=== PATIENT | female | born 1970 | race Caucasian/White ===

== ENCOUNTER 2023-07-04 16:00 | Emergency (ER) | payer OTHER ==
--- NOTE | 2023-07-04 16:43 | ED ---
Lower Extremity Injury HPI - General Chief Complaint: Extremity Injury, Lower Stated Complaint: left knee injury Time Seen by Provider: 07/04/23 16:33 Source: patient, RN notes reviewed Mode of arrival: wheelchair Limitations: no limitations - History of Present Illness Initial Comments: This is a pleasant female who fell off a barstool last night landing on her left knee. Patient complains of pain to the anterior aspect of knee which is exacerbated by movement, just elevation, alleviated by rest. Bear weight. Any pain to the ankle or hip. Did sustain a very superficial abrasion to the medial aspect of left ankle. No distal paresthesias. No head or neck injury. No headache, no fever or chills, no changes in vision or hearing, no sore throat or difficulty with speech, no neck pain, no chest pain or shortness of breath, no abdominal pain, no nausea or vomiting, no changes in urination or bowel movements, no numbness or tingling, no skin rashes or lesions. Past medical, surgical, social, and family history reviewed. MD Complaint: knee injury - Related Data Previous Rx's Medication Instructions Recorded HYDROcodone/APAP 5-325MG [Rodanthe 1 tab PO Q8HR PRN 3 Days #12 tab 07/04/23 5-325] Allergies Allergy/AdvReac Type Severity Reaction Status Date / Time No Known Allergies Allergy Verified 07/04/23 16:24 Review of Systems ROS Statement: Those systems with pertinent positive or pertinent negative responses have been documented in the HPI. ROS Other: All systems not noted in ROS Statement are negative. Past Medical History Past Medical History: Cancer, Hyperlipidemia Past Surgical History: Hysterectomy Additional Past Surgical History / Comment(s): double mastectomy General Exam Limitations: no limitations General appearance: alert, in no apparent distress Head exam: Present: atraumatic, normocephalic, normal inspection Eye exam: Present: normal appearance, PERRL, EOMI. Absent: scleral icterus, conjunctival injection, periorbital swelling ENT exam: Present: normal exam, mucous membranes moist Neck exam: Present: normal inspection. Absent: tenderness, meningismus, lymphadenopathy Respiratory exam: Present: normal lung sounds bilaterally. Absent: respiratory distress, wheezes, rales, rhonchi, stridor Cardiovascular Exam: Present: regular rate, normal rhythm, normal heart sounds. Absent: systolic murmur, diastolic murmur, rubs, gallop, clicks GI/Abdominal exam: Present: soft, normal bowel sounds. Absent: distended, tenderness, guarding, rebound, rigid Extremities exam: Present: tenderness, normal capillary refill. Absent: normal inspection, full ROM, pedal edema, joint swelling, calf tenderness Left Hip exam: Present: normal inspection, full ROM. Absent: tenderness Knee exam: Present: tenderness, swelling, ecchymosis, full knee extension. Absent: abrasion, laceration, deformity, crepitus, dislocation, erythema, effusion Lower Leg exam: Present: normal inspection. Absent: tenderness Ankle exam: Present: full ROM, abrasion. Absent: tenderness, swelling Back exam: Present: normal inspection Neurological exam: Present: alert, oriented X3, CN II-XII intact Psychiatric exam: Present: normal affect, normal mood Skin exam: Present: warm, dry, intact, normal color. Absent: rash Course Vital Signs 07/04/23 16:20 Temperature 99 F Pulse Rate 100 Respiratory 20 Rate Blood Pressure 118/75 O2 Sat by Pulse 98 Oximetry Medical Decision Making - Medical Decision Making Was pt. sent in by a medical professional or institution? @ -No Did you speak to anyone other than the patient for history? @ -No Did you review nursing and triage notes? @ -Agree Were old charts reviewed? @ -No Differential Diagnosis? @ -Contusion, fracture, dislocation, is not appeared to be consistent with infectious process, not consistent with neurovascular injury. EKG interpreted by me (3pts min.)? @ -[none] X-rays interpreted by me (1pt min.)? @ -Independent interpretation of the left knee x-ray by me shows evidence of a minimally displaced fracture to the lateral aspect of the tibial plateau. Interpretation is delayed. CT interpreted by me (1pt min.)? @ -[none] U/S interpreted by me (1pt. min.)? @ -[none] What testing was considered but not performed? (CT, X-rays, U/S, labs)? Why? @ [Left foot x-ray was considered but not performed as the patient refuses study stating that she really had no pain to the ankle or foot. What meds were considered but not given? Why? @ -[none] Did you discuss the management of the patient with other professionals? @ -None Did you reconcile home meds? @ -[none] Was smoking cessation discussed for >3mins.? @ -[none] Was critical care preformed (if so, how long)? @ -[none] Were there social determinants of health that impacted care today? How? (Homelessness, low income, unemployed, alcoholism, drug addiction, transportation, low edu. Level, literacy, decrease access to med. care, fdc, rehab)? @ -Patient is from [place] and will be going back on Sunday. We'll see an orthopedic physician there--discussed conservative therapy otherwise. Was there de-escalation of care discussed even if they declined? (Discuss DNR or withdrawal of care, Hospice)? @ -[Discuss DNR or withdrawal of care, Hospice?] What co-morbidities impacted this encounter? (DM, HTN, Smoking, COPD, CAD, Cancer, CVA, Hep., AIDS, mental health diagnosis, sleep apnea, morbid obesity)? @ - None Was patient admitted / discharged? @ -[hospital course] Undiagnosed new problem with uncertain prognosis? @ -[none] Drug Therapy requiring intensive monitoring for toxicity (Heparin, Nitro, Insulin, Cardizem)? @ -[none] Were any procedures done? @ - Application of knee immobilizer, distal neurovascular status intact both pre-and post-application. Patient told to wear the knee immobilizer at all times until follow-up with orthopedics. Diagnosis/symptom? @ -Left tibial plateau fracture, abrasion left ankle and foot Acute, or Chronic, or Acute on Chronic? @ -Acute Uncomplicated (without systemic symptoms) or Complicated (systemic symptoms)? @ -Uncomplicated Side effects of treatment? @ -[none] Exacerbation, Progression, or Severe Exacerbation] @ -[no] Poses a threat to life or bodily function? @ -Unlikely to post threat to life or bodily function Discussed need for follow-up with orthopedics. Wear the knee immobilizer at all times until follow-up with orthopedics. Discussed signs and symptoms of compartment syndrome. Discussed signs and symptoms of splint care. Neurovascular status intact. Short course of Rodanthe, 3 days. The case was discussed in detail with ED attending physician. Presentation, findings, treatment plan discussed in detail. Disposition Clinical Impression: Closed fracture of left tibial plateau, Abrasion, left ankle, initial encounter Disposition: HOME SELF-CARE Condition: Stable Instructions (If sedation given, give patient instructions): Leg Fracture (ED), Knee Immobilizer (ED) Additional Instructions: Wear the knee immobilizer and ofttimes until follow-up with orthopedics. Call as soon as possible to set up a follow-up appointment with your orthopedic physician in [place]. The leg as much as possible. Apply ice 20 minutes on and off to the affected area. Do not drive or operate machinery while taking the pain medication. Wear the knee immobilizer at all times. Use crutches at all times as directed. Follow-up with your regular physician as directed. Return to the ER immediately if any symptoms worsen, new symptoms arise, or any other problems develop. Prescriptions: HYDROcodone/APAP 5-325MG [Rodanthe 5-325] 1 tab PO Q8HR PRN 3 Days #12 tab PRN Reason: Pain Is patient prescribed a controlled substance at d/c from ED?: Yes When asked, does pt state using other controlled substances?: No If prescribed controlled substance>3 days was MAPS reviewed?: Prescribed <3 Days Referrals: Natan Harris MD [STAFF PHYSICIAN] - 1-2 days Time of Disposition: 17:51
--- NOTE | 2023-07-04 18:02 | XR ---
EXAMINATION TYPE: XR knee complete LT DATE OF EXAM: 07/04/2023 COMPARISON: None HISTORY: 52-year-old female with fall and pain TECHNIQUE: 3 views FINDINGS: A large joint effusion. Subtle lucencies seen at the level of the lateral tibial plateau. Slight 3 mm depression of the articular surface peripherally. IMPRESSION: Given the large knee joint effusion, findings are highly suggestive of a minimally depressed, nondisp laced lateral tibial plateau fracture.
[2023-07-04 18:40] VITALS: BP 120/72; PULSE 89; RESP 18; TEMP 98.4
== END 2023-07-04 18:22 | disposition home or self-care (01) ==
LOC: EC 16:00
DX: S82.142A Displaced bicondylar fracture of left tibia, initial encounter for closed fracture (principal); W08.XXXA Fall from other furniture, initial encounter
CPT/HCPCS: 73562; 99283; L1830